=== PATIENT | female | born 1975 | race Native Hawaiian/Other Pacific Islander ===

== ENCOUNTER 2021-07-12 08:11 | Outpatient (CLI) | payer BC | END 2021-07-12 19:07 | disposition home or self-care (01) | LOC: RAD 08:11 | PROVIDERS: ATTEND Internal Medicine | DX: Z13.820 Encounter for screening for osteoporosis (principal); E55.9 Vitamin D deficiency, unspecified; S22.20XA Unspecified fracture of sternum, initial encounter for closed fracture; Y92.9 Unspecified place or not applicable; M85.88 Other specified disorders of bone density and structure, other site ==

== ENCOUNTER 2022-08-24 16:00 | Outpatient (CLI) | payer BC | END 2022-08-24 19:30 | disposition home or self-care (01) | LOC: RAD 16:00 | PROVIDERS: ATTEND Internal Medicine | DX: N95.8 Other specified menopausal and perimenopausal disorders (principal) ==